=== PATIENT | female | born 1980 | race Caucasian/White ===

== ENCOUNTER → 2018-06-01 | Outpatient (CLI) | payer OTHER ==
[~2018-06-01] MED LIST: IBUP-1222 PO
== END | disposition home or self-care (01) ==
LOC: RAD 15:42
PROVIDERS: ATTEND Family Medicine
DX: M79.89 Other specified soft tissue disorders (principal)

== ENCOUNTER 2021-05-18 11:10 | Day surgery (SDC) | payer OTHER ==
[~2021-05-18] VITALS: Ht 162.6 cm; Wt 90.8 kg
[~2021-05-18 11:10] MED LIST changes: +BUPIVACAINE/PF 0.5% ONE; +EPINEPHRINE 1 MG/ML, 1ML ONE; +HYDR200T72 PO
[2021-05-18 11:44] VITALS: BP 139/93
[2021-05-18 11:57] LABS: HCG UR SG 1.027 (1.003-1.030)
[2021-05-18] MEDS ORDERED: CHLORHEXIDINE 15 ML UDC PO ONE (12:00)
[2021-05-18] MEDS ORDERED: LACTATED RINGERS 1,000 ML IV SCH (12:00)
[2021-05-18] MEDS ORDERED: FENTANYL PF 250 MCG/5ML ONE (12:30)
[2021-05-18] MEDS ORDERED: MIDAZOLAM 1 MG/ML, 2ML ONE (12:30)
[2021-05-18] MEDS ORDERED: HYDROmorphone 1 MG/ML, 1ML INJ IVPush PRN (13:00)
[2021-05-18] MEDS ORDERED: MIDAZOLAM 1 MG/ML, 2ML IV PRN (13:00)
[2021-05-18] MEDS ORDERED: ACETAMINOPHEN 325 MG TABLET PO PRN (13:00)
[2021-05-18] MEDS ORDERED: OXYcodone 5 MG/5 ML ORAL.SOL UDC PO PRN (13:00)
[2021-05-18] MEDS ORDERED: DIAZEPAM 5 MG/ML, 2ML IVPush PRN (13:00)
[2021-05-18] MEDS ORDERED: ONDANSETRON 2MG/ML, 2ML IVPush PRN (13:00)
[2021-05-18] MEDS ORDERED: MEPERIDINE/PF 25MG/0.5ML IVPush PRN (13:00)
[2021-05-18] MEDS ORDERED: LORazepam 2 MG/ML, 1ML IVPush PRN (13:00)
[2021-05-18] MEDS ORDERED: HYDR-2214 PO (13:40)
[2021-05-18] MEDS ORDERED: DEXAMETHASONE 4 MG/ML, 1ML ONE (13:45)
[2021-05-18] MEDS ORDERED: PROPOFOL 10 MG/ML, 20ML ONE (13:45)
[2021-05-18] MEDS ORDERED: ONDANSETRON 2MG/ML, 2ML ONE (13:45)
[2021-05-18] MEDS ORDERED: CEFAZOLIN 1,000 MG ONE (13:45)
[2021-05-18] MEDS ORDERED: KETOROLAC 30 MG/1 ML ONE (13:45)
[2021-05-18] MEDS ORDERED: FENTANYL PF 100 MCG/2ML ONE (14:25)
[2021-05-18] MEDS ORDERED: OXYcodone 5 MG/5 ML ORAL.SOL UDC ONE (14:26)
[2021-05-18] MEDS ORDERED: HYDROmorphone 1 MG/ML, 1ML INJ ONE (14:26)
[2021-05-18] MEDS: FENTANYL PF 100 MCG/2ML IV PRN ×2 (14:30→14:38)
== END 2021-05-18 19:25 | disposition home or self-care (01) ==
LOC: OUT 11:10
PROVIDERS: ATTEND Surgery
DX: R22.32 Localized swelling, mass and lump, left upper limb (principal); D17.22 Benign lipomatous neoplasm of skin and subcutaneous tissue of left arm; M19.90 Unspecified osteoarthritis, unspecified site; G47.30 Sleep apnea, unspecified; M32.9 Systemic lupus erythematosus, unspecified; Z20.822 Contact with and (suspected) exposure to COVID-19; Z79.01 Long term (current) use of anticoagulants; Z79.899 Other long term (current) drug therapy; Z85.528 Personal history of other malignant neoplasm of kidney; Z88.8 Allergy status to other drugs, medicaments and biological substances; Z92.21 Personal history of antineoplastic chemotherapy
CPT/HCPCS: 24071; 36415; 80053; 81025; 85025; 85610; 88305; 93005; J0171; J0690; J1100; J1885; J2250; J2405; J2704; J3010; J7120; U0003; U0005